=== PATIENT | female | born 1955 | race Caucasian/White ===

== ENCOUNTER → 2021-11-11 | Day surgery (SDC) | payer MEDICARE, BC ==
[~2021-11-11] MED LIST: ALPRAZOLAM 0.0.25 MG PO; AMBIEN 5 MG TABL5 M1 PO; CALCIUM MAGNES1 EACH PO; COSOPT PF EYE1 EACH EA. EYE; HYDROCODON-ACE1 EAC7 PO; LEXAPRO20 MG PO; LIPITOR10 MG PO; LISINOPRIL10 MG PO; LUCENTIS0.3 MG/0.1 EA. EYE; MULTIVITAMIN200 MCG PO; PRESERVISION T1 EACH PO
--- NOTE | ~2021-11-11 | OP ---
[facility] [address] [place] [address] [address] OPERATIVE REPORT Name: SELENA ELIAS Room: [facility].#: [id number] Admission: 11/11/21 Attend Phys: Colten Avilez Discharge: Date of : 53 Report #: [id number] THIS REPORT FOR: cc: Cortney You MD,Cortney Avilez,Colten Bean MD ~ DATE OF SURGERY: 11/11/2021 PREOPERATIVE DIAGNOSIS: Right lower quadrant abdominal pain. POSTOPERATIVE DIAGNOSIS: Right lower quadrant abdominal pain. OPERATION: Diagnostic laparoscopy with enterolysis. SURGEON: Dr. Colten Avilez. ANESTHESIA: General. ESTIMATED BLOOD LOSS: 5 mL. SPECIMENS: None. DESCRIPTION OF PROCEDURE: After informed consent was obtained, the patient was brought to the operating room and placed supine. SCDs were placed and working, preoperative antibiotics were administered, general anesthesia was induced. The abdomen was then prepped and draped in the usual sterile fashion. A 5-mm incision was made in the left upper quadrant. A 5 mm trocar was placed under direct vision. Pneumoperitoneum was established. A left periumbilical 5 mm trocar was then placed under direct vision in the left lower quadrant, 5 mm trocar was placed under direct vision. I examined the abdomen. The liver appeared normal. The small bowel appeared normal. She had omentum covering most of the small bowel. I then examined the right lower quadrant. The colon was normal. The cecum was normal. There were adhesions of the cecum to the right lower quadrant of the abdomen, similar to her previous operation. I grasped the cecum and retracted it medially. I was able to free it up from the lateral attachments and some of the adhesions to the lateral abdominal wall with cautery. Then there was then good movement of the cecum. I examined the ascending colon and the transverse colon. There were no other abnormalities. There were no masses visible. The ports were then removed under direct vision. Skin was closed with 4-0 Monocryl. Incisions were dressed with Steri-Strips. COMPLICATIONS: [place] [address] OPERATIVE REPORT Name: SELENA ELIAS Room: [facility].#: [id number] Admission: 11/11/21 Attend Phys: Colten Avilez Discharge: Date of : 53 Report #: [id number] DISPOSITION: The patient was taken to recovery in satisfactory condition. By: [id number] Avilez MD /marian
[2021-11-11 07:08] LABS: HEMATOCRIT 30.7 % (37.0-47.0); HEMOGLOBIN 10.3 gm/dL (12.0-15.0); MCH 31.2 pg (26.0-34.0); MCHC 33.4 g/dL (28.0-37.0); MCV 93.4 fL (80.0-100.0); MPV 8.9 fl. (7.2-11.1); RBC 3.29 mil/uL (4.20-5.00); RDW-CV 13.4 % (10.5-14.5)
[2021-11-11 07:26] LABS: CALCIUM 8.6 mg/dL (8.5-10.1); CREATININE 1.3 mg/dL (0.6-1.3); POTASSIUM 3.7 mmol/L (3.5-5.1)
[2021-11-11 07:31] LABS: ALBUMIN 3.3 g/dL (3.4-5.0); TOTAL BILIRUBIN 0.1 mg/dL (<0.1-1.0)
--- NOTE | 2021-11-11 09:31 | EKG ---
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1955 Requested By: Brenda Dolan Order Number: [id number] Brandon MD: Jeovany Wade Measurements Intervals [place] Rate: 71 P: 85 SC: 184 QRS: 24 QRSD: 98 T: 70 QT: 409 QTc: 445 Interpretive Statements Sinus rhythm Low voltage, precordial leads Baseline wander in lead(s) V4 Compared to ECG 05/07/2007 07:28:37 Low QRS voltage now present Electronically Signed On 11-11-2021 9:31:39 [employer] by Jeovany Wade [email or web address] <ELECTRONICALLY SIGNED> By: Jeovany Wade MD, [facility] 11/11/21 0931 4 4 Jeovany Wade MD, [facility] /EPI
== END | disposition home or self-care (01) ==
LOC: M.SUR 06:01
PROVIDERS: Anesthesiology; ATTEND Surgery
DX: R10.31 Right lower quadrant pain (principal); K56.50 Intestinal adhesions [bands], unspecified as to partial versus complete obstruction; I10 Essential (primary) hypertension; Z98.890 Other specified postprocedural states; Z79.899 Other long term (current) drug therapy; Z90.710 Acquired absence of both cervix and uterus; Z98.51 Tubal ligation status; Z20.822 Contact with and (suspected) exposure to COVID-19; Z85.828 Personal history of other malignant neoplasm of skin